=== PATIENT | female | born 1975 | race Caucasian/White ===

== ENCOUNTER 2017-11-11 12:58 | Emergency (ER) | payer OTHER ==
[~2017-11-11] VITALS: Ht 162.6 cm; Wt 50.0 kg
[~2017-11-11 12:58] MED LIST: DICY1TAB26 PO; Z.0.NO CURRENT MEDS
[2017-11-11 13:01] VITALS: BP 110/65; PULSE 92; RESP 19; TEMP 97.8; O2SAT 97
[2017-11-11] MEDS ORDERED: CYCL10TA PO (13:18)
[2017-11-11] MEDS ORDERED: NAPR500 PO (13:18)
--- NOTE | 2017-11-11 13:22 | PD ---
HPI Chief Complaint: Back/ Neck Pain or Injury Time Seen by Provider: 13:09 Travel History International Travel<30 days: No Contact w/Intl Traveler<30days: No Traveled to known affect area: No History of Present Illness HPI Patient comes emergency department complaining of right low back pain that began this morning to try to get out of bed and her knee gave out on her causing her land on her knee and twisting her back causing pain in her right low back. Patient describes pain as a sharp stabbing pain that radiates down her right lower extremity. Pain is worse with coughing. Patient reports taking Aleve shortly prior to coming to emergency department with little to no improvement of her symptoms. Denies any fevers, direct trauma to the back, loss or change in bowel or bladder, numbness or tingling anywhere, , abdominal pain, or history of IV drug use. 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") Diminished Hearing: No ?: Not LMP: 10/15/17 : 2 Para: 2 Miscarriage: 0 : 0 Ovarian Cysts: Yes (R ovary) Past Surgical History Tonsillectomy: Yes Social History Alcohol Use: Yes (Occ) Tobacco Use: Yes (3 cigs a day) Substance Use: No Allergies-Medications (Allergen,Severity, Reaction): Coded Allergies: penicillin G (Unverified Allergy, Severe, Swelling, 02/11/17) Reported Meds & Prescriptions Reported Meds & Active Scripts Active Naprosyn (Naproxen) 500 Mg Tab 500 Mg PO Q12HR PRN Flexeril (Cyclobenzaprine HCl) 10 Mg Tab 10 Mg PO Q8HR PRN Bentyl (Dicyclomine HCl) 20 Mg Tab 20 Mg PO Q6HPRN FOR CRAMPS Reported No Current Meds (Miscellaneous Medication) [facility] [place] Review of Systems Except as stated in HPI: all other systems reviewed are Neg Physical Exam Narrative GENERAL: Well-developed, well nourished, in no acute distress, and non-ill appearing. SKIN: Focused skin assessment warm and dry. HEAD: Atraumatic. Normocephalic. EYES: Pupils equal and round. EOMI. No scleral icterus. No injection or drainage. ENT: No nasal bleeding or discharge. Mucous membranes pink and moist. NECK: Trachea midline. Supple. No nuclear rigidity. RESPIRATORY: No accessory muscle use. No respiratory distress. GASTROINTESTINAL: Abdomen soft, non-tender, nondistended, and no guarding. Hepatic and splenic margins not palpable. No pulsatile mass. MUSCULOSKELETAL: No obvious deformities. No clubbing. No cyanosis. No edema. Full range of motion. No tenderness or crepitus over midline of the lumbar spine. Patient reports tenderness palpation right lateral lumbar muscles. Straight leg test positive on right. Sensation over first webspace in bilateral lower extremities equal and intact bilaterally. Strength 5 out of 5 and equal bilateral plantar dorsiflexion. Hips FROM and equal BL with passive flexion, extension, Abduction, Adduction, and internal/external rotation. NEUROLOGICAL: Awake and alert. No obvious cranial nerve deficits. Motor grossly within normal limits. Normal speech. PSYCHIATRIC: Appropriate mood and affect; insight and judgment normal. Data Data Last Documented VS Vital Signs Date Time Temp Pulse Resp B/P (MAP) Pulse Ox O2 Delivery O2 Flow Rate FiO2 11/11/17 13:01 97.8 92 19 110/65 (80) 97 Orders Orders Ed Discharge Order (11/11/17 13:22) MDM Medical Decision Making Medical Screen Exam Complete: Yes Emergency Medical Condition: Yes Differential Diagnosis Fracture, strain, sciatica Narrative Course Patient presents with apparent back strain with sciatica. The patient presented complaining of back pain radiating down her right lower extremity. There was history of preceding of indirect trauma. The patients pain complaint and exam were consistent with soft tissue injury and not consistent with bony injury. There were no subjective or objective findings to support radiographic evaluation. There is no midline spine pain or tenderness and no significant distracting injury to suggest associated spine injury. The patient has no neurological complaints. The patient has been behaving normally and no notable altered mental status. Matt score of 15. The patients neurological exam is normal with normal motor and sensory. There is no saddle paresthesias reported and no bowel or bladder incontinence or retention. Clinical suspicion, plan of care and management was discussed with the patient. The patient was instructed to follow up with their health care provider. The patient was also instructed to return if the pain worsened, changed, or developed weakness or bowel or bladder trouble. The patient agreed with plan. There was no evidence to support genitourinary etiology. There is also no evidence to suggest vascular pathology such as AAA dissection. No fevers or other evidence to suspect infectious processes, abscess etc. Patient in no obvious distress upon re-evaluation. Patient was asked if they wanted to speak to my attending, which the patient did not wish to do at this time. Any questions/concerns in reference to patient diagnosis/condition discussed and clarified prior to patient's discharge. Reinforced sheer importance of close follow up with patient's primary physician or primary care clinic. Instructed patient to return to ED immediately, if symptoms return/ worsen. Patient showed understanding of above instructions. Further instructions and recommendations were detailed in discharge paperwork. Patient ambulated without difficulty out of ED at discharge. Diagnosis Primary Impression: Low back strain Qualified Codes: S39.012A - Strain of muscle, fascia and tendon of lower back , initial encounter Referrals: [facility] Patient Instructions: General Instructions, Low Back Strain (ED) Additional Instructions: Follow-up with your primary care physician in 3-5 days for reevaluation. Take all medication as prescribed. Return to the emergency department if symptoms get worse. Med/Other Pt SpecificInfo: Prescription(s) given Scripts Naproxen (Naprosyn) 500 Mg Tab 500 MG PO Q12HR Y for PAIN SCALE 1 TO 10, #14 TAB 0 Refills Prov: Charla Haney MD 11/11/17 Cyclobenzaprine (Flexeril) 10 Mg Tab 10 MG PO Q8HR Y for MUSCLE PAIN, #15 TAB 0 Refills Prov: Charla Haney MD 11/11/17 Disposition: 01 DISCHARGE HOME Condition: Stable Adebayo Keller November 11, 2017 13:22
== END 2017-11-11 13:35 | disposition home or self-care (01) ==
LOC: NEPK 12:58
DX: S39.012A Strain of muscle, fascia and tendon of lower back, initial encounter (principal); M54.31 Sciatica, right side; Z72.0 Tobacco use; Z86.79 Personal history of other diseases of the circulatory system; X58.XXXA Exposure to other specified factors, initial encounter
CPT/HCPCS: 99283